=== PATIENT | female | born 1995 | race Caucasian/White ===

== ENCOUNTER 2016-03-27 10:40 | Inpatient (IN) | payer OTHER ==
[~2016-03-27] VITALS: Ht 152.4 cm; Wt 57.3 kg
[~2016-03-27 10:40] MED LIST: ATARAX,VISTARIL50 MG PO; CARBIDOPA/LEVOD1 TA1 PO; DOXYCYCLINE MO100 M1 PO; NATURE'S BLEND F1 MG PO; THERA TABS1 TAB PO; VITAMIN B-11 TAB PO
[2016-03-27 11:30] VITALS: BP 131/44
[2016-03-27 11:50] VITALS: BP 131/44
[2016-03-27 12:53] LABS: BASO % 0.1 % (0.0-1.0); EOS % 0.1 % (1.0-4.0); HEMATOCRIT 38.4 % (37.0-47.0); HEMOGLOBIN 12.4 g/dl (12.0-16.0); LYMPH # 2.6 10*3/uL (1.3-4.4); LYMPH % 38.2 % (27.0-41.0); MEAN CELL VOLUME 90.6 fl (81.0-99.0); MEAN CORPUSCULAR HGB 29.2 pg (27.0-31.0); MEAN CORPUSCULAR HGB CONC 32.3 g/dl (33.0-37.0); MEAN PLATELET VOLUME 8.5 fl (9.6-12.3); MONO # 0.4 10*3/uL (0.1-1.0); NEUT # 3.7 10*3/uL (2.3-7.9); NEUT % 55.5 % (47.0-73.0); PLATELET COUNT AUTOMATED 347 10*3/uL (130-400); RED BLOOD COUNT 4.24 10*6/uL (4.10-5.10); WHITE BLOOD COUNT 6.7 10*3/uL (4.8-10.8)
[2016-03-27 13:03] LABS: INTERNATIONAL NORM RATIO 0.9 (2.0-3.5)
[2016-03-27 13:10] LABS: ALBUMIN 3.6 gm/dl (3.1-4.5); ALKALINE PHOSPHATASE 108 U/L (45-117); BILIRUBIN, TOTAL 0.4 mg/dl (0.2-1.0); BUN 10 mg/dl (7-24); CARBON DIOXIDE 27 mmol/L (21-32); CHLORIDE 105 mmol/L (98-107); EST GLOM FILT AFRICAN AMERICAN > 60 ml/min; GLUCOSE 101 mg/dL (65-99); POTASSIUM 4.5 mmol/L (3.5-5.1); SGOT/AST 22 IU/L (3-35); SGPT/ALT 37 U/L (12-78); SODIUM 141 mmol/L (136-145); TOTAL PROTEIN 8.2 gm/dL (6.4-8.2)
[2016-03-27 14:25] LABS: URINE AMPHETAMINES < 1000 (1000ng/ml); URINE BARBITURATES > 200 (200ng/ml); URINE COCAINE > 300 (300ng/ml)
[2016-03-27 14:29] LABS: BILIRUBIN NEGATIVE (NEGATIVE); BLOOD NEGATIVE (NEGATIVE); CLARITY CLEAR (CLEAR); COLOR YELLOW (YELLOW); GLUCOSE NEGATIVE (NEGATIVE); KETONE NEGATIVE (NEGATIVE); LEUKO ESTERASE NEGATIVE (NEGATIVE); NITRITE NEGATIVE (NEGATIVE); PROTEIN NEGATIVE (NEGATIVE)
[2016-03-27 14:38] LABS: BACTERIA TRACE; URINE REFLEX COMMENT NO (NO)
[2016-03-27 16:00] VITALS: BP 113/51
[2016-03-27 20:00] VITALS: BP 119/55
[2016-03-28] VITALS: BP 131/48
[2016-03-28 08:00] VITALS: BP 110/30
[2016-03-28 08:09] LABS: HEPATITIS C VIRUS ANTIBODY 0.5 s/co (0.0-0.9)
[2016-03-28 12:06] LABS: HIV 1+2 AB + HIV1 P24 AG Non Reactive (Non Reactive)
[2016-03-28 16:00] VITALS: BP 114/51
[2016-03-28 20:00] VITALS: BP 110/55
[2016-03-29] VITALS: BP 119/42
[2016-03-29 08:00] VITALS: BP 92/44
[2016-03-29 12:00] VITALS: BP 118/53
[2016-03-29 16:00] VITALS: BP 90/39
[2016-03-29 20:00] VITALS: BP 118/46
[2016-03-30] VITALS: BP 121/62
[2016-03-30 08:00] VITALS: BP 80/42
[2016-03-30] MEDS ORDERED: SEPTRA DS 800 M1 TAB PO (09:36)
[2016-03-30] MEDS ORDERED: ACYCLOVIR400 MG PO (09:36)
[2016-03-30] MEDS ORDERED: ATARAX,VISTARIL50 MG PO (09:36)
== END 2016-03-30 10:57 | disposition home or self-care (01) | DRG 897 ==
LOC: 4E 10:40
PROVIDERS: Internal Medicine
DX: F11.23 Opioid dependence with withdrawal (principal); R56.9 Unspecified convulsions; E44.1 Mild protein-calorie malnutrition; L03.113 Cellulitis of right upper limb; L02.413 Cutaneous abscess of right upper limb; B00.9 Herpesviral infection, unspecified; F14.10 Cocaine abuse, uncomplicated; F13.10 Sedative, hypnotic or anxiolytic abuse, uncomplicated; Z98.890 Other specified postprocedural states; Z72.0 Tobacco use; Z68.24 Body mass index [BMI] 24.0-24.9, adult